=== PATIENT | female | born 1990 | race Caucasian/White ===

== ENCOUNTER → 2021-10-30 | Outpatient (CLI) | payer OTHER ==
--- NOTE | 2021-10-30 14:19 | P.SLEEP ---
History of Present Illness DATE: 10/30/2021 CONSULTATION/NEW PATIENT EVALUATION HISTORY OF PRESENT ILLNESS/SLEEP-WAKE EVALUATION: He 31year old lady had b een evaluated in the sleep center for possible obstructive sleep apnea hypopnea syndrome. SLEEP SCHEDULE: Usually sleep schedule on weekdays 8 PM3 AM, during days off 11 PM to 11 AM. FALLING ASLEEP: Sometimes patient has problems with falling asleep. She says TV set in bedroom DURING SLEEP: . Sleeps on the side and stomach position. #History of restless leg symptoms. Posterior history of snoring, awakenings from sleep with nocturia, dry mouth. No history of hypnogogical hallucinations, sleep paralysis, or cataplexy. DURING THE DAY/WAKE STATE: Patient wake up tired, falling asleep during the day. [place] sleepiness scale is 3. Patient take several naps during the day. PAST MEDICAL HISTORY: Depression, anxiety, asthma, hyperlipidemia,. Diabetes, history of anemia, recently amenorrhea. PAST SURGICAL HISTORY: Left heel surgery MEDICATIONS: Lexapro 10 mg once a day, trazodone 50 mg once a day, Adipex 3.5 mg once a day, inhalers for asthma patient does not remember the names SOCIAL HISTORY: Negative for smoking, alcohol consumption occasional. FAMILY HISTORY: Heart problems, cancer, diabetes, restless legs REVIEW OF SYSTEMS: Loud snoring, awakenings from sleep, sleepiness. No fevers. No double vision. No recent chest pain. No shortness of breath. No abdominal pain. No bleeding episodes. No blood in urine. No seizure episodes. PHYSICAL EXAMINATION: GENERAL: A pleasant patient without any distress. VITAL SIGNS: BP 106/74 , HR 88 , RR 16 , weight 186 pounds, height 4 foot 9 and and a half inches, body mass index 39.5 , temperature 98.1, oxygen saturation room air 92%. HEENT: PERRLA, EOMI. Evaluation of oropharynx showed tongue protrudes midline, low position of soft palate Mallampati 4. NECK: Supple. No JVD. Thyroid is not palpable. 16 inches in circumference. LUNGS: Clear to percussion and to auscultation. Good air exchange. No wheezing or rhonchi. HEART: S1, S2 regular. No murmurs, gallops or rubs. ABDOMEN: Soft and nontender. Bowel sounds are present. No organomegaly appreciated. EXTREMITIES: No clubbing or cyanosis. 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 Cranial nerves 2 to 7 intact. There is no fasciculation or atrophy noted. No focal deficits observed. ASSESSMENT: 1. Loud snoring, awakenings from sleep with nocturia, extremely low position of soft palate Mallampati 4, white neck 16 inches in circumference. Patient take naps several times during the day. Obstructive sleep apnea hypopnea syndrome.. 2. Obesity body mass index 39.5. 3 history of restless leg syndrome. 4. depression. 5 anxiety. 6. Asthma. 7. History of pre Diabetes. 8. Hyperlipidemia. 9. Amenorhea. 10. Status post left heel surgery. PLAN: 1. Polysomnography for evaluation of patient's breathing during sleep. 2. CPAP/BiPAP titration if sleep study confirms obstructive sleep apnea- hypopnea syndrome. 3. Preferable position during sleep on the side. 4. No driving if patient feels any sleepiness. Patient is aware of civil and criminal liability for unsafe driving. 5. Sleep hygiene with regular sleep time for at least 7.5-8 hours. 6. Losing weight. Sincerely, Wili Zambrano MD, PhD, FAASM. Diplomat of [place] [employer], Sleep Medicine Board by [place] [employer] [place] [employer] Investigator Claims of [facility] [place] Sleep Note - Sleep Note Sleep Note: Temperature: Pulse Rate: Respiratory Rate: Blood Pressure: SpO2: Height: Weight: BMI: Neck Circumference:
== END ==
LOC: SLEEP 13:10
PROVIDERS: ATTEND Internal Medicine
DX: G47.33 Obstructive sleep apnea (adult) (pediatric) (principal); E66.9 Obesity, unspecified; Z68.39 Body mass index [BMI] 39.0-39.9, adult; G25.81 Restless legs syndrome; F32.A Depression, unspecified; F41.9 Anxiety disorder, unspecified; J45.909 Unspecified asthma, uncomplicated; E78.5 Hyperlipidemia, unspecified; Z86.39 Personal history of other endocrine, nutritional and metabolic disease; N91.2 Amenorrhea, unspecified; Z98.890 Other specified postprocedural states
CPT/HCPCS: 99202